=== PATIENT | male | born 1945 | race Caucasian/White ===

== ENCOUNTER → 2017-07-19 | Outpatient (CLI) | payer OTHER ==
[~2017-07-19] MED LIST: ACETAMINOPHEN-1 EAC1 PO; ADVAIR HFA 230M12 GM INH; ALBUTEROL2.5 MG/31 INH; AMBIEN 5 MG TABL5 M1 PO; ANTACID M LIQU355 ML PO; ASPIR 8181 MG PO; ATORVASTATIN CA40 MG PO; AZITHROMYCIN 2250 MG PO; B12INJ PO; CENTRUM SILVER1 EAC2 PO; COLACE100 MG PO; COREG6.25 MG PO; FLOMAX0.4 MG PO; FLONASE 0.05%50 MCG NASAL; HYDROCHLOROTHIA25 M2 PO; HYDROCODONE-AP1 EAC6 PO; HYDROXYZINE HCL25 M1 PO; LASIX 40 MG TAB40 M2 PO; LEVAQUIN 500 M500 M2 PO; LISINOPRIL5 MG PO; NEILMED SINUS R1 KIT NASAL; PEPCID20 MG PO; PHENERGAN 25 MG25 M1 PO; POTASSIUM20 PO; PREDNISONE 10 M10 M1 PO; PREDNISONE 10 M10 MG PO; PROAIR HFA8.5 GM INH; SPIRIVA INH; STIOLTO RESPIMAT4 GM INH; SYMBICORT160 MCG/4. INH; SYMBICORT80 MCG/4.1 INH; TRAZODONE HCL50 MG PO; TYLENOL EXTRA500 MG PO; ZAROXOLYN 5MG TA5 MG PO; ZOLOFT25 MG PO
== END ==
LOC: M.RAD 12:21
DX: J44.9 Chronic obstructive pulmonary disease, unspecified (principal); J98.4 Other disorders of lung; J41.1 Mucopurulent chronic bronchitis; Z86.79 Personal history of other diseases of the circulatory system

== ENCOUNTER → 2017-11-28 | Outpatient (CLI) | payer OTHER ==
--- NOTE | 2017-11-28 15:50 | 2DMMODE ---
[place] [address] 2 D/M-MODE ECHOCARDIOGRAM Name: MICHELL SAUCEDO Room: [facility]#: [id number] Admission: 11/28/17 Attend Phys: Jorge Calhoun, Discharge: Date of : 49 Date of Service: 11/28/17 1549 Report #: [id number] THIS REPORT FOR: //name// APPROVED REPORT Study performed: 11/28/2017 14:54:29 EXAM: Comprehensive 2D, Doppler, and color-flow Echocardiogram Patient Location: Out-Patient Status: routine BSA: 2.18 HR: 83 bpm BP: 127/80 mmHg Other Information Study Quality: Fair Technically limited study due to patient could not lay down, inability to position patient. Indications Aortic Valve Disease 2D Dimensions IVSd: 16.07 (7-11mm) LVOT Diam: 20.92 (18-24mm) LVDd: 55.96 mm PWd: 12.31 (7-11mm) Ascending Ao: 29.23 (22-36mm) LVDs: 38.14 (25-40mm) Aortic Root: 32.77 mm Volumes Left Atrial Volume (Systole) LA ESV Index: 25.50 mL/m2 Aortic Valve AoV Peak Johnny.: 3.45 m/s AO Peak Gr.: 47.59 mmHg LVOT Max P.04 mmHg AO Mean Gr.: 27.85 mmHg LVOT Mean P.15 mmHg LVOT Max V: 0.71 m/s AO V2 VTI: 78.30 cm LVOT Mean V: 0.50 m/s JUSTINO (VTI): 0.83 cm2 LVOT V1 VTI: 19.00 cm Mitral Valve E/A Ratio: 0.44 MV Decel. Time: 99.45 [place] [address] 2 D/M-MODE ECHOCARDIOGRAM Name: MICHELL SAUCEDO Room: [facility]#: [id number] Admission: 11/28/17 Attend Phys: Jorge Calhoun, Discharge: Date of : 49 Date of Service: 11/28/17 1549 Report #: [id number] MV E Max Johnny.: 0.44 m/s MV PHT: 28.84 ms MVA (PHT): 7.63 cm2 TDI E/Lateral E': 6.29 E/Medial E': 4.40 Medial E' Johnny.: 0.10 m/s Lateral E' Johnny.: 0.07 m/s Pulmonary Valve PV Peak Johnny.: 0.57 m/s PV Peak Gr.: 1.32 mmHg Tricuspid Valve RAP Estimate: 5.00 mmHg TR Peak Gr.: 32.86 mmHg RVSP: 37.86 mmHg PA Pressure: 37.86 mmHg Left Ventricle The left ventricle is normal size. There is normal LV segmental wall motion. Mild concentric left ventricular hypertrophy. Left ventricular systolic function is normal. LVEF is 55-60%. Transmitral Doppler flow pattern suggests impaired LV relaxation. Right Ventricle The right ventricle is normal size. The right ventricular systolic function is normal. Atria The left atrium size is normal. The right atrium size is normal. Aortic Valve Aortic valve is moderately calcified. No aortic regurgitation is present. Severe aortic stenosis. Mitral Valve There is mild mitral annular calcification. There is no mitral valve regurgitation noted. No evidence of mitral valve stenosis. Tricuspid Valve The tricuspid valve is normal in structure. Mild to moderate tricuspid regurgitation. The RVSP is 35-40 mmHg. Pulmonic Valve The pulmonary valve is normal in structure. There is no pulmon[place] [address] 2 D/M-MODE ECHOCARDIOGRAM Name: MICHELL SAUCEDO Room: [facility]#: [id number] Admission: 11/28/17 Attend Phys: Jorge Calhoun, Discharge: Date of : 49 Date of Service: 11/28/17 1549 Report #: [id number] Great Vessels The aortic root is normal in size. IVC is normal in size and collapses with >50% inspiration Pericardium There is no pericardial effusion. <Conclusion> The left ventricle is normal size. Mild concentric left ventricular hypertrophy. Left ventricular systolic function is normal. LVEF is 55-60%. Transmitral Doppler flow pattern suggests impaired LV relaxation. Aortic valve is moderately calcified. Severe aortic stenosis. Mild to moderate tricuspid regurgitation. Mild to moderate tricuspid regurgitation. The RVSP is 35-40 mmHg. <ELECTRONICALLY SIGNED> By: oJrge Calhoun MD, FACC 11/28/17 1549 1549 1549 Jorge Calhoun MD, FACC /INF
== END ==
LOC: M.CRD 14:08
DX: I07.1 Rheumatic tricuspid insufficiency (principal); I35.0 Nonrheumatic aortic (valve) stenosis; I35.8 Other nonrheumatic aortic valve disorders; I34.8 Other nonrheumatic mitral valve disorders

== ENCOUNTER 2018-01-27 15:32 | Inpatient (IN) | payer OTHER ==
[~2018-01-27] VITALS: Ht 185.4 cm; Wt 91.6 kg
[~2018-01-27 15:32] MED LIST changes: -ALBUTEROL2.5 MG/31 INH; -B12INJ PO; -FLONASE 0.05%50 MCG NASAL; -NEILMED SINUS R1 KIT NASAL; -PHENERGAN 25 MG25 M1 PO; -POTASSIUM20 PO; -PREDNISONE 10 M10 M1 PO; -PROAIR HFA8.5 GM INH; -STIOLTO RESPIMAT4 GM INH; -TRAZODONE HCL50 MG PO; -TYLENOL EXTRA500 MG PO; -ZAROXOLYN 5MG TA5 MG PO; -ZOLOFT25 MG PO
[2018-01-27 15:34] VITALS: BP 150/77
[2018-01-27] MEDS ORDERED: TRAZODONE HCL50 MG PO (15:42)
[2018-01-27] MEDS ORDERED: POTASSIUM20 PO (15:42)
[2018-01-27] MEDS ORDERED: ZOLOFT25 MG PO (15:43)
[2018-01-27] MEDS ORDERED: ADVAIR HFA 230M12 GM INH (15:43)
[2018-01-27] MEDS ORDERED: ZAROXOLYN 5MG TA5 MG PO (15:44)
[2018-01-27] MEDS ORDERED: ALBUTEROL2.5 MG/31 INH (15:45)
[2018-01-27] MEDS ORDERED: STIOLTO RESPIMAT4 GM INH (15:45)
[2018-01-27] MEDS ORDERED: FLONASE 0.05%50 MCG NASAL (15:46)
[2018-01-27] MEDS ORDERED: B12INJ PO (15:46)
[2018-01-27] MEDS ORDERED: PROAIR HFA8.5 GM INH (15:46)
[2018-01-27] MEDS ORDERED: NEILMED SINUS R1 KIT NASAL (15:46)
[2018-01-27] MEDS ORDERED: TYLENOL EXTRA500 MG PO (15:47)
[2018-01-27 16:20] LABS: ABSOLUTE EOSINOPHILS 0.1 thou/uL (0.0-0.7); ABSOLUTE LYMPHOCYTES 1.6 thou/uL (0.8-5.3); ABSOLUTE MONOCYTES 0.9 thou/uL (0.0-1.2); ABSOLUTE NEUTROPHILS 5.9 thou/uL (1.6-8.1); BASOPHILS 0.5 %; EOSINOPHILS 1.5 %; HEMATOCRIT 39.2 % (42.0-52.0); HEMOGLOBIN 13.5 gm/dL (14.0-18.0); LYMPHOCYTES 18.6 %; MCHC 34.4 g/dL (28.0-37.0); MCV 92.8 fL (80.0-100.0); MPV 6.7 fl. (7.2-11.1); NUCLEATED RBCS 0 /100WBC; PLATELET COUNT* 354 thou/uL (150-400); POLYS 69.4 %; RBC 4.23 mil/uL (4.50-6.00); RDW-CV 13.2 % (10.5-14.5); WBC 8.5 thou/uL (4.0-11.0)
[2018-01-27 16:30] LABS: ANION GAP 9 mmol/L (7-16); APTT 35.2 Seconds (25.0-31.3); BUN 15 mg/dL (7-18); CALCIUM 9.1 mg/dL (8.5-10.1); CHLORIDE 96 mmol/L (98-107); CO2 29 mmol/L (21-32); CREATININE 1.1 mg/dL (0.6-1.3); GLUCOSE 109 mg/dL (70-99); POTASSIUM 3.4 mmol/L (3.5-5.1); PROTIME 10.4 Seconds (9.20-11.50); SODIUM 134 mmol/L (136-145)
[2018-01-27 16:46] LABS: ALBUMIN 3.6 g/dL (3.4-5.0); ALKALINE PHOSPHATASE 104 U/L (46-116); LIPASE 123 U/L (73-393); SGOT 12 U/L (15-37); SGPT 16 U/L (30-65); TOTAL BILIRUBIN 0.4 mg/dL (<0.1-1.0); TOTAL PROTEIN 7.9 g/dL (6.4-8.2); TROPONIN-I LEVEL <0.06 ng/mL (<0.06)
[2018-01-27 18:07] VITALS: BP 113/66
[2018-01-27 18:20] VITALS: BP 135/75
--- NOTE | 2018-01-27 18:45 | NUR ---
PT ARRIVED TO UNIT VIA [facility] AT ED RN AT 1816. PT TRANSFERED FROM [facility] TO BED WITHOUT ASSISTANCE. A&O X4, ABLE TO COMMUNICATE NEEDS TO STAFF. VSS. O2 SAT >92% ON 2.5 L/MIN NC. BLADE SHARPENER IN PLACE, SR BBB 1ST DEG WITH PVCs. ASSESSMENT COMPLETE, DOCUMENTED. CALL LIGHT WITHIN REACH.
[2018-01-27 20:00] VITALS: BP 116/68
--- NOTE | 2018-01-27 20:00 | NUR ---
RECEIVED REPORT AND ASSUMED CARE OF PT, ASSESSMENT COMPLETED. PT SITTING UP IN BED. O2 ON AT 2.5 L/NC. NO SOB NOTED. C/O NAUSEA, WILL GIVE MED. TELEMETRY ON SHOWING SA WITH 1ST AVB, BBB. WILL CONT TO MONITOR AND ASSIST NEEDED.
[2018-01-27 22:00] VITALS: BP 103/67; BP 113/67; BP 123/76
--- NOTE | 2018-01-27 22:00 | NUR ---
ORTHO VS TAKEN. LYING 123/76, 81 SITTING 113/67, 82 STANDING 103/67, 91. PT DENIES DIZZINESS OR SYNCOPAL FEELING. ASSISTED WITH CANE TO BR AND BACK, TOLERATED WELL.
[2018-01-28] VITALS (7 sets, daily range): BP systolic 88–154; BP diastolic 50–75
[2018-01-28 05:51] LABS: ABSOLUTE BASOPHILS 0.1 thou/uL (0.0-0.2); ABSOLUTE EOSINOPHILS 0.2 thou/uL (0.0-0.7); ABSOLUTE LYMPHOCYTES 1.7 thou/uL (0.8-5.3); ABSOLUTE MONOCYTES 1.1 thou/uL (0.0-1.2); ABSOLUTE NEUTROPHILS 7.7 thou/uL (1.6-8.1); BASOPHILS 0.5 %; EOSINOPHILS 2.2 %; HEMOGLOBIN 12.2 gm/dL (14.0-18.0); MCH 31.6 pg (26.0-34.0); MCHC 33.9 g/dL (28.0-37.0); MCV 93.4 fL (80.0-100.0); MONOCYTES 10.5 %; MPV 7.3 fl. (7.2-11.1); NUCLEATED RBCS 0 /100WBC; PLATELET COUNT* 310 thou/uL (150-400); POLYS 70.8 %; RBC 3.86 mil/uL (4.50-6.00); RDW-CV 13.2 % (10.5-14.5); WBC 10.9 thou/uL (4.0-11.0)
[2018-01-28 05:57] LABS: CALCIUM 8.7 mg/dL (8.5-10.1); POTASSIUM 3.1 mmol/L (3.5-5.1)
--- NOTE | 2018-01-28 06:27 | NUR ---
SLEPT WELL TONIGHT. GAIT STEADY TO AND FROM BR. DENIES DIZZINESS. TELEMETRY CONT TO SHOW SR WITH 1ST AVB, BBB, PAC, AND PVC. NPO FOR ATIYA POSS TODAY AND CARDIOLOGY CONSULT. HS GOALS OF REST AND COMFORT ACHIEVED. HOURLY ROUNDING OBSERVED.
--- NOTE | 2018-01-28 10:57 | NUR ---
ASSISTANT TRACK COACH INFORMED THAT THE PATIENT WILL NEED TO TRANSFER TO ANOTHER FACILITY. REFERRING PHYSICIAN: DR. NEAL; TYPE OF BED: TELE; REASON/REQUEST: SERVICES NOT AVAILABLE AT OUR FACILITY, [facility]; FACILITY TRANSFERING TO: [facility]. ASSISTANT TRACK COACH SPOKE TO [facility] TRANSFER TEAM TO INFORM OF THE NEED TO TRANSFER THE PATIENT, AND FAXED PATIENT'S FACESHEET, H&P, AND CLINICAL INFO, AND HAD ALL IMAGING UPLOADED TO THE CLOUD. CM WILL REMAIN AVIALABLE TO ASSIST AND FOLLOW NEEDED.
--- NOTE | 2018-01-28 15:23 | NUR ---
Pt is A&O. Resides at home alone. Supportive dtr that lives near and is available to assist as needed. Pt wears home o2 at [facility], provided by [employer]. Pt has a cane that he uses a needed. Hx of , does not recall the name of the agency. Hx of skilled at [facility] in 2015. Dtr to provide dc transportation. Following.
--- NOTE | 2018-01-28 16:19 | NUR ---
PATIENT UP WITH ASSISTANCE; REFUSING TO USE BSC/URINAL PER DR. BUI. PATIENT WANTING TO WALK INTO BATHROOM. UP WITH ASSISTANCE AND USE OF CANE. PER CARDIOLOGY PATIENT TO TRANSFER TO [facility] ON THE [place] FOR TAVR PROCEDURE. PER [facility] PATIENT TO JUST FOLLOW UP ON SUNDAY AFTER DISCHARGE. DR. BUI NOTIFIED AND PATIENT DAUGHTER AWARE. PATIENT DAUGHTER CALLING THIS AFTERNOON AND PER [facility] F/U APPT TO BE CANCELLED AND PATIENT TO FOLLOW UP ON 02/04. THIS NURSE SPOKE WITH JAMIE FROM CARDIOLOGY AND WOULD NOTIFY DR. NEAL. SCHEDULING PHONE NUMBER GIVEN TO JAMIE ELECTORATE OFFICER. SECURITY TEAM LEAD REMAINS IN PLACE. IV SL. XRAY DONE OF LEFT ANKLE THIS AFTERNOON, NEGATIVE. PRN TYLENOL GIVEN FOR LEFT ANKLE PAIN THIS AM WITH GOOD RELIEF NOTED.
--- NOTE | 2018-01-28 20:00 | NUR ---
RECEIVED REPORT AND ASSUMED CARE OF PT, ASSESSMENT COMPLETED. LONG DISCUSSION WITH PT CONCERNING BEDREST. STATES HE WILL USE THE URINAL SITTING UP BUT WILL GO INTO BR FOR BM'S. EDUCATED PT ON SYNCOPY AND SAFETY BUT INSISTED ON BM IN BR IF NEEDED. TELEMETRY ON SHOWING SR WITH 1ST AVB AND BBB. WILL CONT TO MONITOR AND ASSIST NEEDED.
[2018-01-29] VITALS: BP 90/48
[2018-01-29 04:00] VITALS: BP 88/43
--- NOTE | 2018-01-29 06:58 | NUR ---
SLEPT WELL. PT STOOD AT BEDSIDE TO URINATE. DENIES DIZZINESS OR SYNCOPAL FEELING. EDUCATED PT ON BEDREST AND NOT GETTING UP. MONITORING BP DUE TO BEING LOW. TELEMETRY CONT TO BE UNCHANGED. HAVING OCC MOIST COUGH. HS GOALS OF REST AND SAFETY ACHIEVED. HOURLY ROUNDING OBSERVED.
[2018-01-29 08:00] VITALS: BP 90/51
--- NOTE | 2018-01-29 10:03 | NUR ---
ASSUMED CARE OF PT AT 0730. PT RESTING IN BED. PT A&0X4, DENIES ANY PAIN OR SHORTNESS OF BREATH AT THIS TIME. PT TRACING SR WITH PAC'S, FIRST DEGREE AND BBB ON THE MARKETING PRODUCTION COORDINATOR. ON 2L NC SAT 96% DENIES ANY SHORTNESS OF BREATH. PT ON BEDREST, EDUCATION GIVEN REGARDING LOW BLOOD PRESSURE AND HISTORY OF SYNCOPAL EPISODES, BLOOD PRESSURE 90/51 THIS AM- PO COREG AND LASIX HELD THIS AM- LACY CASE, CARDIOLOGY WRITER PRODUCER HERE TO SEE PT AND OKAY TO HOLD COREG AND LASIX. WILL MONITOR BLOOD PRESSURE CLOSELY. PT DAUGHTER CALLED THIS AM AND UPDATED ON CURRENT PLAN OF CARE, PT DAUGHTER STATES PT IS TO HAVE ATIYA ON 02/04 AT [facility] AND CONSULTATION FOR TAVR ON 02/06 AT [facility]. PT GOAL FOR TODAY IS TO REMAIN FREE FROM SYNOPAL EPISODES AND MONITOR BLOOD PRESSURE CLOSELY. AM ASSESSMENT CHARTED. MEDICATIONS PER MAY. PT REPOSITIONS SELF. HOURLY ROUNDING OBSERVED. BED IN LOW POSITION. BED ALARM IN PLACE. FALL PRECAUTIONS IN PLACE. CALL LIGHT WITHIN REACH. WILL CONTINUE PLAN OF CARE.
--- NOTE | 2018-01-29 11:10 | EKG ---
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 : 1945 Requested By: Gustavo Robles Order Number: [id number] MD: Giancarlo Portillo Measurements Intervals [place] Rate: 73 P: 60 TN: 231 QRS: -57 QRSD: 149 T: 38 QT: 425 QTc: 469 Interpretive Statements Sinus arrhythmia Ventricular premature complex Prolonged TN interval RBBB and LAFB Compared to ECG 10/03/2015 18:10:32 Ventricular premature complex(es) now present First degree AV block now present Sinus rhythm no longer present Electronically Signed On 01-29-2018 11:10:09 PHYSICS DEPARTMENT CHAIR by Giancarlo Portillo [email or web address] <ELECTRONICALLY SIGNED> By: Giancarlo Portillo MD, FACC 01/29/18 1110 1539 1539 Giancarlo Portillo MD, FACC /EPI
[2018-01-29 11:13] VITALS: BP 93/55
--- NOTE | 2018-01-29 11:41 | NUR ---
Spoke with Dr Goodwin, requested that CM contact [facility], Dr sidhus Pt transferred. CM contacted [facility] transfer team and provided contact info for Dr Goodwin. Following.
[2018-01-29 15:48] VITALS: BP 84/48
--- NOTE | 2018-01-29 16:12 | NUR ---
SEED PRODUCTION FIELD SUPERVISOR SPOKE TO THE PATIENT TO DISCUSS DISCHARGE PLANNING NEEDS AND SKILLED AT D/C. PATIENT INFORMS THAT HE 'IS NOT OPPOSED TO SKILLED AND IF RECOMMENDED BY THE PHYSICIAN, WOULD LIKE TO GO TO [facility]'. SEED PRODUCTION FIELD SUPERVISOR FAXED AN INITIAL REFERRAL TO [facility], HOWEVER THERE ARE NO PT/OT NOTES AVAILABLE. PT/OT NOTES WILL NEED TO BE FAXED TO [facility]. CM WILL REMAIN AVAILABLE TO ASSIST AND FOLLOW NEEDED.
--- NOTE | 2018-01-29 17:23 | NUR ---
NO ACUTE CHANGES THROUGHOUT SHIFT. REFER TO CHARTING. PT BLOOD PRESSURE CONTINUES TO BE SOFT AT 80-90'S/ 40-50'S. PT REMAINED FREE FROM SYNCOPAL EPISODES [id number] SHIFT. PT HAD A BOWEL MOVEMENT TODAY- UP WITH 1 ASSIST, CANE AND GAIT BELT TO BATHROOM. COREG AND LASIX DECREASED PER JAMIE MORENO NP. EVENING DOSE OF COREG HELD DUE TO LOW BLOOD PRESSURE.PT CONTINUES TO TRACE SR WITH OCCASIONAL FIRST DEGREE, BBB AND PAC'S ON THE BAR ATTENDANT. ON 2L NC SAT UPPER 90'S. DENIES ANY PAIN OR SHORTNESS OF BREATH THROUGHOUT SHIFT. DR BUI HERE TO SEE PT. WILL CONTINUE TO WATCH BLOOD PRESSURE AND PLAN FOR DISCHARGE TO SNF BEFORE TRANSFER TO [facility] FOR TAVR PT NOT SAFE TO BE AT HOME BY HIMSELF. PT NOT PROGRESSING TOWARDS GOALS. MEDICATIONS PER MAY. PT REPOSITIONS SELF WITH REMINDERS. HOURLY ROUNDING OBSERVED. BED IN LOW POSITION. BED ALARM IN PLACE. FALL PRECAUTIONS IN PLACE. CALL LIGHT WITHIN REACH. WILL CONTINUE PLAN OF CARE.
[2018-01-29 20:00] VITALS: BP 109/67
[2018-01-30 01:09] VITALS: BP 98/59
[2018-01-30 04:00] VITALS: BP 98/57
--- NOTE | 2018-01-30 05:03 | NUR ---
ASSUMED CARE OF PT AT 0930. PT RESTED WELL THIS SHIFT. HYPOTENTION NOTED. REMAIN UNSYMPTOMATIC THROUGHOUT SHIFT. REAMINED SR W/ BBB ON MONITOR. TYLENOL GIVEN FOR LEFT ANKLE PAIN. SAFELTY PRECAUTIONS IN PLACE. CALL LIGHT WITHIN REACH. PERFORMED HOURLY ROUNDING. NURSING WILL CONTINUE TO MONITOR.
[2018-01-30 12:00] VITALS: BP 100/60
[2018-01-30 13:18] LABS: CALCIUM 9.4 mg/dL (8.5-10.1); POTASSIUM 4.6 mmol/L (3.5-5.1)
--- NOTE | 2018-01-30 13:24 | NUR ---
PT DAUGHTER BROUGHT IN UPDATED MED LIST, WILL PROVIDE TO ONCOMING RN TO VERIFY AND UPDATE. PT VSS WITH SOME BOUTS OF HYPOTENSION THAT RESOLVE, NO SYNCOPAL EPISODES THIS SHIFT. AIDES ASKED TO OBTAIN ORTHOSTATIC VS ON PT WITH AFTERNOON VS. PT TOLERATING DIET AND DENIES PAIN AT THIS TIME. WILL HAVE ONCOMING RN DISCUSS WITH POLYMERIZATION KETTLE OPERATOR REGARDING PT LEAVING FOR SKILLED FACILITY TOMORROW 01/31/18
--- NOTE | 2018-01-30 15:01 | NUR ---
Pt will likely not qualify for SNF, OT signed off, awaiting PT and Pt does not have a ST need. Updated Dr Goodwin, plan dc to home tomorrow with HH, to monitor and educate Pt on cardiac issues. Referral to be faxed to [facility] at dc. NORMA spoke with [facility] regarding referral. Following.
--- NOTE | 2018-01-30 15:26 | NUR ---
RECIEVED REPORT FROM ZAN AND ASSUMED CARE OF PT @ 1400.PT IS A/O X4,VSS.ASSESSMENT REVEIWED AND THIS NURSE AGREES WITH PREVIOUS NURSE.PT RESTING IN BED WITH CALL LIGHT AND FALL PRECAUTIONS IN PLACE.WILL CONTINUE TO MONITOR.
[2018-01-30 15:38] VITALS: BP 106/62
[2018-01-30] MEDS ORDERED: FLONASE 0.05%50 MCG NASAL (16:47)
[2018-01-30] MEDS ORDERED: SPIRIVA INH (16:48)
[2018-01-30] MEDS ORDERED: PREDNISONE 10 M10 M1 PO (16:50)
[2018-01-30] MEDS ORDERED: PHENERGAN 25 MG25 M1 PO (16:51)
[2018-01-30 20:00] VITALS: BP 137/74
[2018-01-31] VITALS (9 sets, daily range): BP systolic 108–126; BP diastolic 55–78
--- NOTE | 2018-01-31 04:49 | NUR ---
ASSUMED CARE OF PT AFTER REPORT AT 1930. PT A&OX4. VSS. PHYSICAL ASSESSMENT COMPLETED AND CHARTED. PT ON O2 AT 2L WITH 02 SAT. PT TRACING SR/1ST DEG/BBB ON TELE. PT UP STANDBY ASSIST TO RESTROOM. PT COMPLAINED OF LEFT ANKLE PAIN- WITH PAIN SCALE OF 5/10-PAIN MEDS GIVEN PER MAR WITH PARTIAL RELIEF. HOURLY ROUNDING OBSERVED. HS REST & SAFETY GOALS ACHIEVED. CALL [facility] WITHIN REACH. BED IN LOW POSITION. BED ALARM ON.
[2018-01-31 05:04] LABS: ABSOLUTE EOSINOPHILS 0.4 thou/uL (0.0-0.7); ABSOLUTE LYMPHOCYTES 1.4 thou/uL (0.8-5.3); ABSOLUTE NEUTROPHILS 5.6 thou/uL (1.6-8.1); BASOPHILS 0.5 %; EOSINOPHILS 4.4 %; HEMATOCRIT 34.6 % (42.0-52.0); HEMOGLOBIN 11.6 gm/dL (14.0-18.0); LYMPHOCYTES 17.1 %; MCH 31.6 pg (26.0-34.0); MCHC 33.6 g/dL (28.0-37.0); MONOCYTES 11.3 %; MPV 7.2 fl. (7.2-11.1); NUCLEATED RBCS 0 /100WBC; PLATELET COUNT* 293 thou/uL (150-400); POLYS 66.7 %; RBC 3.68 mil/uL (4.50-6.00); RDW-CV 13.2 % (10.5-14.5); WBC 8.4 thou/uL (4.0-11.0)
[2018-01-31 05:21] LABS: CALCIUM 8.7 mg/dL (8.5-10.1); CREATININE 0.8 mg/dL (0.6-1.3); POTASSIUM 3.9 mmol/L (3.5-5.1)
--- NOTE | 2018-01-31 10:08 | NUR ---
VACUUM TRUCK DRIVER SPOKE TO INTAKE NURSE WITH [facility] TO INFORM OF THE REFERRAL FOR HH SERVICES, AND FAXED THE PATIENT'S FACESHEET AND H&P. [facility] TO RETURN CALL TO INFORM OF ACCEPTANCE OF THE PATIENT. D/C ORDERS TO BE FAXED TO [facility] PENDING ACCEPTANCE OF THE PATIENT. CM WILL REMAIN AVIALABLE TO ASSIST AND FOLLOW NEEDED.
--- NOTE | 2018-01-31 17:19 | NUR ---
RECEIVED REPORT FROM APOLONIA AND ROMARIO PT AT 0730. VSS TRACING SINUS RHYTHM 1ST DEGREE BBB. ASSESSMENT COMPLETED CHARTED. PT ALERT AND ORIENTED X 4. PT IS CALM AND COOPERATIVE. PAIN WELL MANAGED WITH PO PAIN MEDICATION. LUNGS CTA. PT REMAINS ON OXYGEN 2L PER NC. IV PATENT AND SALINE LOCKED. PT UP WITH SBA. PT WORKED WITH PHYSICAL THERAPY AND AMBULATED IN HALLWAY. PT INFORMED OF PLAN OF CARE. PT VERBALIZE UNDERSTANDING. HOURLY ROUNDING COMPLETED FOR PT SAFETY. CALL LIGHT WITHIN REACH. PT OKAY FOR DISCHARGE. PAPER WORK COMPLETED AND GIVEN TO PT. IV REMOVED. CARDIAC MONITORING REMOVED AND RETURNED TO NURSES STATION. ALL PERSONAL BELONGINGS PACK AND TAKEN WITH PT. PT ESCORTED OFF UNIT BY NURSING STAFF IN WHEELCHAIR AND TAKEN OUT TO PERSONAL VEHICLE.
== END 2018-01-31 18:31 | disposition home health service (06) | DRG 307 ==
LOC: M.ERS 15:32 → M.2W 17:09 → M.TBA-ER 17:09 → M.2W 18:17
PROVIDERS: Emergency Medicine Emergency Medical Services; ADMIT Internal Medicine
DX: I35.0 Nonrheumatic aortic (valve) stenosis (principal); J96.10 Chronic respiratory failure, unspecified whether with hypoxia or hypercapnia; I42.9 Cardiomyopathy, unspecified; I50.32 Chronic diastolic (congestive) heart failure; J44.9 Chronic obstructive pulmonary disease, unspecified; I11.0 Hypertensive heart disease with heart failure; E78.5 Hyperlipidemia, unspecified; Z87.891 Personal history of nicotine dependence; Z79.82 Long term (current) use of aspirin; Z79.51 Long term (current) use of inhaled steroids; Z79.899 Other long term (current) drug therapy

== ENCOUNTER → 2018-07-19 | Outpatient (CLI) | payer OTHER ==
[~2018-07-19] MED LIST changes: +ALBUTEROL2.5 MG/31 INH; +B12INJ PO; +FLONASE 0.05%50 MCG NASAL; +NEILMED SINUS R1 KIT NASAL; +PHENERGAN 25 MG25 M1 PO; +POTASSIUM20 PO; +PREDNISONE 10 M10 M1 PO; +PROAIR HFA8.5 GM INH; +STIOLTO RESPIMAT4 GM INH; +TRAZODONE HCL50 MG PO; +TYLENOL EXTRA500 MG PO; +ZAROXOLYN 5MG TA5 MG PO; +ZOLOFT25 MG PO
== END ==
LOC: M.RAD 13:38
DX: R14.0 Abdominal distension (gaseous) (principal); K59.09 Other constipation

== ENCOUNTER 2018-08-15 15:00 | Inpatient (IN) | payer OTHER ==
[2018-08-13 13:30] VITALS: BP 127/65
[~2018-08-15] VITALS: Ht 185.4 cm; Wt 96.6 kg
[2018-08-15] MEDS ORDERED: ALLOPURINOL 10100 M1 PO (15:11)
[2018-08-15] MEDS ORDERED: ZANTAC 150MG T150 MG PO (15:12)
[2018-08-15] MEDS ORDERED: POTASSIUM20 PO (15:12)
[2018-08-15] MEDS ORDERED: SPIRIVA INH (15:13)
[2018-08-15] MEDS ORDERED: ALEVE220 MG PO (15:16)
[2018-08-15 15:39] LABS: ABSOLUTE MONOCYTES 1.3 thou/uL (0.0-1.2); ABSOLUTE NEUTROPHILS 12.2 thou/uL (1.6-8.1); BASOPHILS 0.2 %; EOSINOPHILS 0.2 %; HEMATOCRIT 45.8 % (42.0-52.0); HEMOGLOBIN 15.4 gm/dL (14.0-18.0); LYMPHOCYTES 7.2 %; MCH 31.5 pg (26.0-34.0); MCHC 33.6 g/dL (28.0-37.0); MONOCYTES 8.8 %; MPV 7.5 fl. (7.2-11.1); NUCLEATED RBCS 0 /100WBC; PLATELET COUNT* 300 thou/uL (150-400); POLYS 83.6 %; RBC 4.87 mil/uL (4.50-6.00); RDW-CV 16.1 % (10.5-14.5); WBC 14.6 thou/uL (4.0-11.0)
[2018-08-15 15:49] LABS: APTT 41.9 Seconds (25.0-31.3); PROTIME 10.2 Seconds (9.20-11.50)
[2018-08-15 15:51] LABS: ANION GAP 14 mmol/L (7-16); BUN 17 mg/dL (7-18); CALCIUM 9.2 mg/dL (8.5-10.1); CHLORIDE 101 mmol/L (98-107); CO2 25 mmol/L (21-32); CREATININE 0.9 mg/dL (0.6-1.3); GLUCOSE 109 mg/dL (70-99); SODIUM 140 mmol/L (136-145)
[2018-08-15 16:07] LABS: ALBUMIN 3.5 g/dL (3.4-5.0); ALKALINE PHOSPHATASE 99 U/L (46-116); NT-PRO BRAIN NAT PEPTIDE 1264 pg/mL (<300); SGOT 13 U/L (15-37); SGPT 18 U/L (30-65); TOTAL BILIRUBIN 0.8 mg/dL (<0.1-1.0); TOTAL PROTEIN 8.3 g/dL (6.4-8.2); TROPONIN-I LEVEL <0.06 ng/mL (<0.06)
[2018-08-15 17:55] VITALS: BP 113/68
[2018-08-15 18:30] VITALS: BP 140/80
[2018-08-16 00:05] VITALS: BP 119/62
[2018-08-16 04:11] VITALS: BP 120/66
[2018-08-16 08:00] VITALS: BP 122/72
--- NOTE | 2018-08-16 10:40 | EKG ---
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: [place] : 1945 Requested By: Gustavo Robles Order Number: [id number] MD: Forrest Cason Measurements Intervals [place] Rate: 112 P: -88 MI: 155 QRS: -44 QRSD: 139 T: 69 QT: 394 QTc: 538 Interpretive Statements Sinus or ectopic atrial tachycardia RBBB and LAFB Baseline wander in lead(s) V1,V2,V3,V4 Compared to ECG 01/27/2018 15:39:43 Sinus arrhythmia no longer present Ventricular premature complex(es) no longer present Electronically Signed On 08-16-2018 10:40:45 CDT by Forrest Cason [email or web address] <ELECTRONICALLY SIGNED> By: Forrest Cason MD, [facility] 08/16/18 1040 1509 1509 Forrest Cason MD, [facility] /EPI
[2018-08-16 11:12] VITALS: BP 113/75
[2018-08-16 11:18] LABS: HEMATOCRIT 43.3 % (42.0-52.0); HEMOGLOBIN 14.1 gm/dL (14.0-18.0); MCH 30.8 pg (26.0-34.0); MCHC 32.6 g/dL (28.0-37.0); MCV 94.5 fL (80.0-100.0); MPV 7.7 fl. (7.2-11.1); RBC 4.58 mil/uL (4.50-6.00); RDW-CV 16.3 % (10.5-14.5); WBC 13.5 thou/uL (4.0-11.0)
[2018-08-16 11:40] LABS: ANION GAP 13 mmol/L (7-16); BUN 28 mg/dL (7-18); CALCIUM 8.8 mg/dL (8.5-10.1); CHLORIDE 102 mmol/L (98-107); CO2 24 mmol/L (21-32); CREATININE 0.9 mg/dL (0.6-1.3); GLUCOSE 263 mg/dL (70-99); POTASSIUM 3.6 mmol/L (3.5-5.1); SODIUM 139 mmol/L (136-145); TROPONIN-I LEVEL <0.06 ng/mL (<0.06)
[2018-08-16 16:17] VITALS: BP 116/67
[2018-08-16 20:00] VITALS: BP 118/66
[2018-08-17] VITALS: BP 122/56
[2018-08-17 03:59] VITALS: BP 132/73
[2018-08-17 05:45] LABS: HEMOGLOBIN 12.4 gm/dL (14.0-18.0); MCH 30.5 pg (26.0-34.0); MCHC 32.7 g/dL (28.0-37.0); MCV 93.3 fL (80.0-100.0); MPV 7.9 fl. (7.2-11.1); RBC 4.08 mil/uL (4.50-6.00); RDW-CV 15.8 % (10.5-14.5); WBC 16.4 thou/uL (4.0-11.0)
[2018-08-17 05:50] LABS: ANION GAP 10 mmol/L (7-16); BUN 26 mg/dL (7-18); CALCIUM 8.5 mg/dL (8.5-10.1); CHLORIDE 103 mmol/L (98-107); CO2 25 mmol/L (21-32); CREATININE 0.8 mg/dL (0.6-1.3); GLUCOSE 157 mg/dL (70-99); POTASSIUM 3.7 mmol/L (3.5-5.1); SODIUM 138 mmol/L (136-145); TROPONIN-I LEVEL <0.06 ng/mL (<0.06)
[2018-08-17 08:00] VITALS: BP 110/53
--- NOTE | 2018-08-17 09:28 | CON ---
[address] [address] CONSULTATION Name: MICHELL SAUCEDO Room: [address] IN M.R.#: [id number] Admission: 08/15/18 Attend Phys: Fabio Bonilla, Discharge: Date of : 49 Report #: [id number] THIS REPORT FOR: //name// CC: Linda Cardozo DO Fabio Bonilla DATE OF SERVICE: 08/16/2018 REQUESTING PHYSICIAN: Fabio Bonilla M.D. REASON FOR CONSULTATION: COPD exacerbation, shortness of breath. DISCUSSION: The patient is a 73-year-old man who has a history of very severe COPD. He is not steroid dependent. He does require O2 at night. Also, he has a history of coronary artery disease and severe aortic stenosis. He had been doing fairly well up until the last several days. He noted increased nasal congestion. He is sneezing a lot, and started having a lot more cough. Increasing trouble breathing. He typically uses oxygen only at night. His O2 saturation during the day typically runs in the 90s. However, with the increased shortness of breath, he was putting his O2 back on. He was seen in the ED. He was having quite a bit of distress. He was on BiPAP for a period of time, it is now been switched over to nasal cannula. Currently, he was on 6 liters at the time I saw him this morning. Subjectively, he is feeling better than what he was at the time of presenting to the ED. He was not aware of any fevers at home. Really he has not had any discolored secretions. Did have some chest pain, it has resolved today. He is feeling somewhat nauseated today, but has not had any vomiting. He is thinking it might be the antibiotics that he had been given. He has a history of very severe COPD as noted. Did quit smoking over 30 years ago. Last full pulmonary function studies or spirometry he had done was back in the fall of 2018. At that time, he is being evaluated for consideration of a TAVR. That was at [facility]. At that time, his FEV1 was only 1.14, which was only 30% of predicted. His FEV1/FVC ratio is 57%. No lung volumes were done. Mid flows were severely decreased as well, might have a component of restrictive lung disease. He has had issues with prior rib fractures as well as fractured clavicles and shoulders. Because of his anatomy, apparently he was not a candidate for TAVR. At home, for COPD, he is managed with Advair HFA 230/21 two puffs twice a day, Spiriva Respimat 2 inhalations daily, ProAir inhaler on a p.r.n. basis as needed and use nebulizer with the albuterol. He will typically do that at least several times a day and increase if needed. He sleeps with oxygen at 2.5 liters at night. He typically has not had to use it during the day[place] [address] CONSULTATION Name: MICHELL SAUCEDO Room: [address] IN [facility]#: [id number] Admission: 08/15/18 Attend Phys: Fabio Bonilla, Discharge: Date of : 49 Report #: [id number] any recent steroids. PAST MEDICAL HISTORY: Remarkable for the severe COPD as noted. Also, he has a history of sleep apnea. Apparently, he was intolerant to CPAP in the past. He does note that recently a new machine with a nasal mask was delivered to him. I am not sure who had arranged that for him. He has had multiple rib fractures in the past from a variety of causes. Also, clavicle fractures. With surgical intervention required, postop apparently he had lot of issues with infections. He has also had a left shoulder replacement, ventral hernia repair. Severe aortic stenosis is noted. He does follow with Dr. Jorge Calhoun. He was evaluated at [facility] for the possibility of a TAVR. SOCIAL HISTORY: He is a former smoker. He is retired. FAMILY HISTORY: Positive for heart disease. REVIEW OF SYSTEMS: ROS was done. Note positives above. Notes he was generally feeling quite good up until several days ago. In and out a lot. He does enjoy spending time outside, does do some gardening work. No fevers at home. He has had some amount of wheezing, mostly he was short of breath. He did have some chest pressure, it has resolved. He has had syncopal episodes in the past, but nothing recently. No palpitations. He noted the onset of some lower extremity edema. He had no nausea or vomiting at home. No dysphagia. Typically no issues with skin rashes. PHYSICAL EXAMINATION: GENERAL APPEARANCE: A man who looks stated age. His O2 running via nasal cannula, currently at 6 liters with O2 saturations 94, 95%. GENERAL: He is alert, cooperative, and able to speak in full sentences. He does have some deformities present over his shoulders area, left greater than right. Somewhat kyphotic as well. Mucous membranes look moist. NECK: No cervical adenopathy is appreciated. HEART: Tones are distant, regular with a 1/6 systolic murmur. No S3 is heard. LUNGS: Kyphotic. He does have some chest wall abnormalities noted. Few faint bibasilar crackles are heard. Excursion is equal. No subcutaneous emphysema is heard. ABDOMEN: Soft. EXTREMITIES: He has no clubbing. Lower extremities: He does have trace pretibial edema. SKIN: Warm and dry. NEUROLOGIC: He is alert and oriented x 3. LABORATORY AND X-RAY FINDINGS: On his chemistry profile, BUN 17 and creatinine of 0.9. ProBNP was just over 1200. Total protein is 8.3, albumin 3.5, and calcium 9.2. White blood cell count is 14,600, hemoglobin 15.4, hematocrit 45.8, and platelets are normal. Troponins done [place] [address] CONSULTATION Name: MARIA SAUCEDOKatina Hernandes Room: [address] IN [facility]#: [id number] Admission: 08/15/18 Attend Phys: Fabio Bonilla, Discharge: Date of : 49 Report #: [id number] Blood cultures were sent. A chest x-ray was reviewed. Some chronic scarring noted as well as old rib fractures, primarily on the left side. Overall, there is not much change compared to studies done in 01/2018. He did have a CT chest done several years ago. Marked emphysematous changes with cystic changes. He had multiple rib fractures with chest wall deformity noted. Last echocardiogram at this facility 11/2017. Had preserved LV function at that time with an EF of 55-60%. He did have diastolic dysfunction. RV was normal. He had severe aortic stenosis. IMPRESSION: 1. Chronic obstructive pulmonary disease exacerbation, is improving. 2. Respiratory failure superimposed on chronic respiratory failure. 3. Probable viral upper respiratory infection. 4. Severe aortic stenosis. This will also contribute to some of his dyspnea, especially with an acute respiratory episode. 5. Chronic obstructive pulmonary disease, baseline he has severe disease. He has not been steroid dependent. 6. History of obstructive sleep apnea. He has been using oxygen and previously he was intolerant to CPAP. 7. Probable restrictive lung disease, related to chest wall deformities. RECOMMENDATIONS: 1. Agree with steroids, may be able to start weaning dose. 2. I will continue neb treatments. Since he is on Spiriva and Advair at home, we will use Brovana, budesonide and ipratropium here to take their place. 3. Wean FiO2. 4. From his history, he was provided with a new type of CPAP with a different mask. He can certainly attempt to use that at home once he is discharged. <ELECTRONICALLY SIGNED> By: Cuca Hernandes MD 08/17/18 0928 1106 [id number] Hernandes MD /nt
[2018-08-17 12:16] VITALS: BP 114/69
[2018-08-17 16:52] VITALS: BP 139/80
[2018-08-17 20:00] VITALS: BP 109/69
[2018-08-18] VITALS: BP 103/52
[2018-08-18 04:00] VITALS: BP 117/69
[2018-08-18 05:04] LABS: HEMATOCRIT 37.4 % (42.0-52.0); HEMOGLOBIN 12.1 gm/dL (14.0-18.0); MCH 30.2 pg (26.0-34.0); MCHC 32.3 g/dL (28.0-37.0); MCV 93.7 fL (80.0-100.0); MPV 7.5 fl. (7.2-11.1); RBC 3.99 mil/uL (4.50-6.00); RDW-CV 15.9 % (10.5-14.5); WBC 13.1 thou/uL (4.0-11.0)
[2018-08-18 05:56] LABS: ALBUMIN 2.3 g/dL (3.4-5.0); ALKALINE PHOSPHATASE 61 U/L (46-116); ANION GAP 9 mmol/L (7-16); BUN 22 mg/dL (7-18); CALCIUM 7.9 mg/dL (8.5-10.1); CHLORIDE 103 mmol/L (98-107); CO2 27 mmol/L (21-32); CREATININE 0.8 mg/dL (0.6-1.3); GLUCOSE 189 mg/dL (70-99); MAGNESIUM 2.2 mg/dL (1.8-2.4); POTASSIUM 3.5 mmol/L (3.5-5.1); SGOT 13 U/L (15-37); SGPT 22 U/L (30-65); SODIUM 139 mmol/L (136-145); TOTAL BILIRUBIN 0.2 mg/dL (<0.1-1.0); TOTAL PROTEIN 5.8 g/dL (6.4-8.2); TROPONIN-I LEVEL <0.06 ng/mL (<0.06)
[2018-08-18 07:56] VITALS: BP 119/55
[2018-08-18 12:53] VITALS: BP 122/62
[2018-08-18 17:52] VITALS: BP 123/75
[2018-08-18 20:00] VITALS: BP 134/59
[2018-08-19] VITALS: BP 110/59
[2018-08-19 04:00] VITALS: BP 105/69
[2018-08-19 04:41] LABS: HEMATOCRIT 39.3 % (42.0-52.0); HEMOGLOBIN 12.8 gm/dL (14.0-18.0); MCH 30.7 pg (26.0-34.0); MCHC 32.6 g/dL (28.0-37.0); MCV 94.1 fL (80.0-100.0); MPV 7.7 fl. (7.2-11.1); RBC 4.17 mil/uL (4.50-6.00); RDW-CV 15.7 % (10.5-14.5); WBC 9.7 thou/uL (4.0-11.0)
[2018-08-19 05:21] LABS: ANION GAP 6 mmol/L (7-16); BUN 21 mg/dL (7-18); CALCIUM 8.3 mg/dL (8.5-10.1); CHLORIDE 104 mmol/L (98-107); CO2 31 mmol/L (21-32); CREATININE 0.8 mg/dL (0.6-1.3); GLUCOSE 101 mg/dL (70-99); MAGNESIUM 2.2 mg/dL (1.8-2.4); POTASSIUM 3.8 mmol/L (3.5-5.1); SODIUM 141 mmol/L (136-145); TROPONIN-I LEVEL <0.06 ng/mL (<0.06)
[2018-08-19 07:05] VITALS: BP 100/55
[2018-08-19 11:42] VITALS: BP 112/81
[2018-08-19] MEDS ORDERED: BROVANA15 MCG/2 M INH (15:27)
[2018-08-19 15:38] VITALS: BP 125/72
[2018-08-19] MEDS ORDERED: IPRAT-ALBUT 0.5-3 ML IH (15:51)
[2018-08-19] MEDS ORDERED: PROTONIX40 M2 PO (15:56)
[2018-08-19] MEDS ORDERED: POTASSIUM20 PO (15:58)
[2018-08-19] MEDS ORDERED: PREDNISONE 10 M10 MG PO (16:05)
[2018-08-19] MEDS ORDERED: AMOX TR-K CLV1 EAC3 PO (16:15)
[2018-08-19] MEDS ORDERED: AZITHROMYCIN 2250 MG PO (16:16)
--- NOTE | 2018-08-20 14:52 | CON ---
[address] [address] CONSULTATION Name: MICHELL SAUCEDO Room: [address] IN .R.#: [id number] Admission: 08/15/18 Attend Phys: Fabio Bonilla, Discharge: 08/19/18 Date of : 49 Report #: [id number] THIS REPORT FOR: //name// CC: Linda Bonilla DATE OF SERVICE: 08/16/2018 HISTORY OF PRESENT ILLNESS: The patient is a 73-year-old single white male who I was asked to see in the hospital today after he complained to be short of breath. The patient has a history of COPD. He used to smoke 3 packs of cigarettes a day. He also has history of alcohol abuse. However, he has not smoked for several years and now has only about 3 drinks of alcohol a day. He has a history of COPD and is on bronchodilators and oxygen at home. He has been followed by my partner, Dr. Calhoun. Previous nuclear stress test in 2016 using Lexiscan here at [place] showed evidence of diaphragmatic attenuation, but no ischemia and ejection fraction of 64%. His last echocardiogram in 11/2017 showed ejection fraction of 60% with evidence of aortic stenosis and a peak gradient across the aortic valve of 48 mmHg consistent with at least moderate aortic stenosis. The patient was doing well until recently had increasing shortness of breath and a cough. He came to the Emergency Room yesterday and was admitted. He does have some chest heaviness, although no radiation of the pain. Denies palpitation, syncope, edema. PAST MEDICAL HISTORY: He has had shoulder surgery, hernia repair, hypertension. MEDICATIONS ON ADMISSION: Consist of Zoloft, ProAir, allopurinol, potassium, ranitidine, Flomax, Lipitor, aspirin, carvedilol, Lasix, albuterol, Naprosyn. ALLERGIES: He has no known drug allergies. FAMILY HISTORY: His father had a heart attack. 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 He is not smoking anymore, has about 3 drinks of alcohol a day. REVIEW OF SYSTEMS: He has had no history of stroke. He has had COPD. He has had a peptic ulcer in the past, had hepatitis A. No kidney disease, no cancer. No psychiatric illness. No chronic skin condition. PHYSICAL EXAMINATION: GENERAL: Revealed an elderly male, lying in bed, appeared in no acute distress. VITAL SIGNS: He had a blood pressure of 120/70, pulse is 90, he is afebrile. HEENT: He is anicteric. Conjunctivae pink. Mucous membranes moist. NECK: Veins do not appear distended[place] [address] CONSULTATION Name: MICHELL SAUCEDO Cecilio Room: [address]#: [id number] Admission: 08/15/18 Attend Phys: Fabio Bonilla, Discharge: 08/19/18 Date of : 49 Report #: [id number] CHEST: Revealed expiratory wheezes. CARDIOVASCULAR: Regular rate and rhythm, grade 3 systolic ejection murmur at left sternal border. ABDOMEN: Soft. EXTREMITIES: Had no pedal edema. Dorsalis pedis pulse cannot be palpated. SKIN: Cool and dry. NEUROLOGIC: Nonfocal. LYMPH: No adenopathy. MUSCULOSKELETAL: No joint effusion. LABORATORY DATA: His ECG showed a sinus tachycardia, left axis deviation, right bundle branch block. His chest x-ray on admission showed interstitial fibrosis, evidence of previous rib fractures, no effusion. Sodium 140, creatinine 0.9. Liver function studies were normal. Troponin 0.06. BNP 1264. White blood cell count 13.5, hemoglobin 14.1. IMPRESSION AND RECOMMENDATIONS: 1. Chronic obstructive pulmonary disease. 2. Aortic stenosis. The patient is not an operative candidate. 3. Hypertension. I will consider discontinuing his beta maribell because of wheezing. 4. Previous tobacco abuse. 5. History of alcohol abuse. <ELECTRONICALLY SIGNED> By: Forrest Cason MD, [facility] 08/20/18 1452 1133 1037David Carol Cason MD, FACC /nt
== END 2018-08-19 18:03 | disposition home or self-care (01) | DRG 871 ==
LOC: M.ERS 15:00 → M.2W 16:22 → M.TBA-ER 16:22 → M.2W 18:06
PROVIDERS: Emergency Medicine Emergency Medical Services; ADMIT Family Medicine
PROC: 5A09357 Assistance with Respiratory Ventilation, Less than 24 Consecutive Hours, Continuous Positive Airway Pressure (ICD-10-PCS; principal; 2018-08-15)
PROC: 5A09357 Assistance with Respiratory Ventilation, Less than 24 Consecutive Hours, Continuous Positive Airway Pressure (ICD-10-PCS; 2018-08-16)
DX: A41.9 Sepsis, unspecified organism (principal); J96.21 Acute and chronic respiratory failure with hypoxia; E43 Unspecified severe protein-calorie malnutrition; I50.43 Acute on chronic combined systolic (congestive) and diastolic (congestive) heart failure; J44.1 Chronic obstructive pulmonary disease with (acute) exacerbation; I42.9 Cardiomyopathy, unspecified; E78.00 Pure hypercholesterolemia, unspecified; I25.10 Atherosclerotic heart disease of native coronary artery without angina pectoris; I35.0 Nonrheumatic aortic (valve) stenosis; G47.33 Obstructive sleep apnea (adult) (pediatric); I45.10 Unspecified right bundle-branch block; F32.9 Major depressive disorder, single episode, unspecified; I11.0 Hypertensive heart disease with heart failure; Z99.81 Dependence on supplemental oxygen; Z79.82 Long term (current) use of aspirin; Z79.899 Other long term (current) drug therapy; Z82.49 Family history of ischemic heart disease and other diseases of the circulatory system; Z87.891 Personal history of nicotine dependence; Z68.28 Body mass index [BMI] 28.0-28.9, adult

== ENCOUNTER → 2019-03-14 | Outpatient (CLI) | payer OTHER ==
[~2019-03-14] MED LIST changes: +ALEVE220 MG PO; +ALLOPURINOL 10100 M1 PO; +AMOX TR-K CLV1 EAC3 PO; +BROVANA15 MCG/2 M INH; +IPRAT-ALBUT 0.5-3 ML IH; +PROTONIX40 M2 PO; +ZANTAC 150MG T150 MG PO
== END ==
LOC: M.RAD 16:04
DX: J43.9 Emphysema, unspecified (principal); M94.0 Chondrocostal junction syndrome [Tietze]; J98.4 Other disorders of lung; M47.819 Spondylosis without myelopathy or radiculopathy, site unspecified

== ENCOUNTER 2020-08-01 12:54 | Inpatient (IN) | payer OTHER ==
[~2020-08-01] VITALS: Ht 185.4 cm; Wt 93.3 kg
[2020-08-01] MEDS ORDERED: RAYOS5 MG PO (13:09)
[2020-08-01 13:23] LABS: ABSOLUTE BASOPHILS 0.1 thou/uL (0.0-0.2); ABSOLUTE EOSINOPHILS 0.2 thou/uL (0.0-0.7); ABSOLUTE LYMPHOCYTES 1.1 thou/uL (0.8-5.3); ABSOLUTE MONOCYTES 0.7 thou/uL (0.0-1.2); ABSOLUTE NEUTROPHILS 6.8 thou/uL (1.6-8.1); BASOPHILS 0.6 %; EOSINOPHILS 1.8 %; HEMOGLOBIN 15.3 gm/dL (14.0-18.0); LYMPHOCYTES 12.6 %; MCH 32.5 pg (26.0-34.0); MCHC 33.3 g/dL (28.0-37.0); MCV 97.7 fL (80.0-100.0); MONOCYTES 7.8 %; MPV 7.4 fl. (7.2-11.1); NUCLEATED RBCS 0 /100WBC; PLATELET COUNT* 232 thou/uL (150-400); POLYS 77.2 %; RBC 4.71 mil/uL (4.50-6.00); RDW-CV 14.5 % (10.5-14.5); WBC 8.8 thou/uL (4.0-11.0)
[2020-08-01 13:35] LABS: APTT 29.4 Seconds (25.0-31.3); CREATININE 0.8 mg/dL (0.6-1.3); POTASSIUM 3.4 mmol/L (3.5-5.1); PROTIME 10.2 Seconds (9.20-11.50)
[2020-08-01 13:46] LABS: ALBUMIN 3.6 g/dL (3.4-5.0); MAGNESIUM 1.8 mg/dL (1.8-2.4); TOTAL BILIRUBIN 0.5 mg/dL (<0.1-1.0); TOTAL PROTEIN 7.7 g/dL (6.4-8.2)
[2020-08-01 14:55] VITALS: BP 143/75
[2020-08-01 15:28] VITALS: BP 139/92
[2020-08-01] MEDS ORDERED: MUCINEX100 MG PO (16:45)
[2020-08-01] MEDS ORDERED: LORATIDINE 10 M10 M1 PO (16:46)
[2020-08-01] MEDS ORDERED: MONTELUKAST SODI4 M1 PO (16:46)
[2020-08-01] MEDS ORDERED: CLONAZEPAM 0.50.5 M1 PO (16:47)
[2020-08-01] MEDS ORDERED: MIRALAX119 GM PO (16:50)
[2020-08-01] MEDS ORDERED: SPIRIVA RESPIMAT4 G1 INH (16:50)
[2020-08-01] MEDS ORDERED: SERTRALINE HCL100 MG PO (16:51)
[2020-08-01 20:00] VITALS: BP 129/91
[2020-08-01 23:30] VITALS: BP 95/67
[2020-08-02 03:45] VITALS: BP 119/61
[2020-08-02 04:12] LABS: HEMATOCRIT 42.6 % (42.0-52.0); HEMOGLOBIN 14.1 gm/dL (14.0-18.0); MCH 32.3 pg (26.0-34.0); MCV 97.8 fL (80.0-100.0); MPV 7.3 fl. (7.2-11.1); NUCLEATED RBCS 0 /100WBC; PLATELET COUNT* 217 thou/uL (150-400); RBC 4.35 mil/uL (4.50-6.00); RDW-CV 14.4 % (10.5-14.5); WBC 7.1 thou/uL (4.0-11.0)
[2020-08-02 04:25] LABS: CALCIUM 8.6 mg/dL (8.5-10.1); CREATININE 0.8 mg/dL (0.6-1.3); POTASSIUM 3.9 mmol/L (3.5-5.1)
[2020-08-02 05:44] LABS: ABSOLUTE EOSINOPHILS 0.1 thou/uL (0.0-0.7); ABSOLUTE LYMPHOCYTES 0.5 thou/uL (0.8-5.3); ABSOLUTE MONOCYTES 0.1 thou/uL (0.0-1.2); ABSOLUTE NEUTROPHILS 6.4 thou/uL (1.6-8.1); PLATELET ESTIMATE ADEQUATE
[2020-08-02 08:00] VITALS: BP 104/55
--- NOTE | 2020-08-02 10:29 | EKG ---
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 : 1945 Requested By: Sj Crespo Order Number: [id number] MD: Forrest Cason Measurements Intervals [place] Rate: 79 P: 67 TN: 236 QRS: -59 QRSD: 147 T: 38 QT: 423 QTc: 486 Interpretive Statements Sinus rhythm Ventricular premature complex Prolonged TN interval RBBB and LAFB Compared to ECG 08/15/2018 15:09:27 Ventricular premature complex(es) now present rate has slowed Electronically Signed On 08-02-2020 10:29:27 CDT by Forrest Cason [email or web address] <ELECTRONICALLY SIGNED> By: Forrest Cason MD, [facility] 08/02/20 1029 1302 1302 Forrest Cason MD, [facility] /EPI
[2020-08-02 12:53] VITALS: BP 109/59
--- NOTE | 2020-08-02 14:01 | 2DMMODE ---
[place] [address] 2 D/M-MODE ECHOCARDIOGRAM Name: MICHELL SAUCEDO Room: [address] IN [facility]#: [id number] Admission: 08/01/20 Attend Phys: Bird Carlson Discharge: Date of : 49 Date of Service: 08/02/20 1401 Report #: [id number] THIS REPORT FOR: cc: Linda Cardozo Ahmad W. DO Blick,Forrest Medina MD [facility] ~ APPROVED REPORT Study performed: 08/02/2020 10:32:33 EXAM: Comprehensive 2D, Doppler, and color-flow Echocardiogram Patient Location: In-Patient Room #: [facility] Status: routine BSA: 2.17 HR: 80 bpm BP: 104/55 mmHg Rhythm: NSR Other Information Study Quality: Good Indications Murmur 2D Dimensions IVSd: 12.21 (7-11mm) LVOT Diam: 22.09 (18-24mm) LVDd: 49.02 mm PWd: 12.02 (7-11mm) Ascending Ao: 41.16 (22-36mm) LVDs: 22.75 (25-40mm) Aortic Root: 39.57 mm Volumes Left Atrial Volume (Systole) LA ESV Index: 29.10 mL/m2 Aortic Valve AoV Peak Johnny.: 3.12 m/s AO Peak Gr.: 38.85 mmHg LVOT Max P.00 mmHg AO Mean Gr.: 22.13 mmHg LVOT Mean P.13 mmHg LVOT Max V: 0.71 m/s AO V2 VTI: 64.75 cm LVOT Mean V: 0.50 m/s JUSTINO (VTI): 1.05 cm2 LVOT V1 VTI: 17.70 [place] [address] 2 D/M-MODE ECHOCARDIOGRAM Name: MICHELL SAUCEDO Room: [address] IN [facility]#: [id number] Admission: 08/01/20 Attend Phys: Bird Carlson Discharge: Date of : 49 Date of Service: 08/02/20 1401 Report #: [id number] Mitral Valve E/A Ratio: 0.68 MV Decel. Time: 396.90 ms MV E Max Johnny.: 0.60 m/s MV PHT: 115.10 ms MVA (PHT): 1.91 cm2 TDI E/Lateral E': 5.00 Lateral E' Johnny.: 0.12 m/s Tricuspid Valve RAP Estimate: 5.00 mmHg TR Peak Gr.: 37.35 mmHg RVSP: 42.00 mmHg PA Pressure: 42.00 mmHg Left Ventricle The left ventricle is normal size. There is normal LV segmental wall motion. Mild concentric left ventricular hypertrophy. Left ventricular systolic function is normal. The left ventricular ejection fraction is within the normal range. LVEF is 60-65%. Grade I - abnormal relaxation pattern. Right Ventricle The right ventricle is normal size. The right ventricular systolic function is normal. Atria Left atrium is mildly dilated. The right atrium size is normal. Aortic Valve Aortic valve is calcified. No aortic regurgitation is present. Moderate aortic stenosis. Mitral Valve The mitral valve is normal in structure. Mild mitral annular calcification. There is no mitral valve regurgitation noted. No evidence of mitral valve stenosis. Tricuspid Valve The tricuspid valve is normal in structure. Trace tricuspid regurgitation. estimated pa pressure 45 mm Hg Pulmonic Valve The pulmonary valve is normal in structure. [place] [address] 2 D/M-MODE ECHOCARDIOGRAM Name: MICHELL SAUCEDO Room: [address]#: [id number] Admission: 08/01/20 Attend Phys: Bird Carlson Discharge: Date of : 49 Date of Service: 08/02/20 1401 Report #: [id number] valvular regurgitation. Great Vessels Aortic root is mildly dilated. IVC is normal in size and collapses >50% with inspiration. Pericardium There is no pericardial effusion. <Conclusion> Mild concentric left ventricular hypertrophy. LVEF is 60-65%. Left atrium is mildly dilated. Moderate aortic stenosis. Trace tricuspid regurgitation. estimated pa pressure 45 mm Hg <ELECTRONICALLY SIGNED> By: Forrest Cason MD, FACC 08/02/201400 00 00 Forrest Cason MD, FACC /INF
--- NOTE | 2020-08-02 14:56 | CON ---
[address] [address] CONSULTATION Name: MICHELL SAUCEDO Room: [address] IN M.R.#: [id number] Admission: 08/01/20 Attend Phys: Los Degroot Discharge: Date of : 49 Report #: [id number] THIS REPORT FOR: cc: Linda Cardozo Ahmad W. DO Blick, David R. MD [facility] ~ DOC #: [id number] cc: DO Forrest Manjarrez MD [facility] DATE OF CONSULTATION: 08/02/2020 HISTORY OF PRESENT ILLNESS: The patient is a 75-year-old single white male who I was asked to see in the hospital today after complaining of being short of breath. The patient has an extensive and complicated past medical history. He previously smoked 3 packs of cigarettes a day for many years. Fortunately, he quit in 1985. He has COPD, he is on chronic oxygen. He also has sleep apnea, uses CPAP at nighttime. Recently, he has had increasing shortness of breath. He actually saw Dr. Mensah three weeks ago who started him on prednisone. However, he continues to be short of breath and has a cough. He denies any fever, lower extremity edema. He does have occasional chest pain, although it is not exertional and does not radiate. He has a history of aortic stenosis, felt to be bicuspid. He has been followed by my partner, Dr. Calhoun. He was initially referred to [facility] in 2007 but the valve was not felt to be severe enough to require TAVR. He was again referred to [facility] but he was told that they did not have the right size for his valve. He has also not felt to be a very good surgical candidate because of the severe COPD. His last echocardiogram was in 2007 and showed a gradient of 48 mmHg consistent with a least severe aortic stenosis. There was an ejection fraction of 60%. He had a cardiac catheterization at [facility] in anticipation of TAVR that showed no significant CAD. He denies recent palpitations, syncope, lightheadedness. PAST MEDICAL HISTORY: Otherwise, he had shoulder surgery, hernia repair. He has a history of hyperlipidemia. No history of diabetes. He does have hypertension. MEDICATIONS: Include albuterol nebulized treatments, allopurinol. He takes Lipitor, carvedilol, Lasix, ranitidine, Zoloft, Flomax, Desyrel. ALLERGIES: He has no known drug allergies. FAMILY HISTORY: His father had heart attack. SOCIAL HISTORY: He is , lives by himself in [place], [place]. 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 He lives by himself. [place] [address] CONSULTATION Name: MICHELL SAUCEDO Room: [address] [id number] Admission: 08/01/20 Attend Phys: Los Degroot Discharge: Date of : 49 Report #: [id number] drinking, currently has about 3 to 4 glasses of wine a day. REVIEW OF SYSTEMS: He has had no history of stroke. He does have sleep apnea. No history of seizures. He apparently has infectious hepatitis in the past. No GI bleeding. No kidney disease. No cancer. No psychiatric illness. He does wear glasses. No chronic skin condition. PHYSICAL EXAMINATION: GENERAL: Revealed an elderly frail appearing male, lying in bed, appeared in no acute distress. VITAL SIGNS: Blood pressure of 120/60, pulse 70. He is afebrile. HEENT: He was anicteric. Conjunctivae pink. Mucosa is moist. NECK: Veins do not appear distended. No carotid bruits. CHEST: Reveal distant breath sounds without wheezes. HEART: Regular rate and rhythm, grade 2 systolic ejection murmur. ABDOMEN: Obese. EXTREMITIES: Had not pitting edema. Dorsalis pedis pulse could not be palpated. SKIN: Cool and dry. NEUROLOGIC: Nonfocal. LABORATORY DATA: His ECG showed a sinus rhythm, PVC, right bundle branch block, left anterior fascicular block. His workup in the emergency room yesterday, he had a portable chest x-ray that showed normal heart size, hyperinflated lung rudd. His lab work, sodium 140, creatinine 0.8, troponin 0.06, BNP 531. His white blood cell count is 7.1, hemoglobin 14.1. IMPRESSION AND RECOMMENDATIONS: 1. Chronic obstructive pulmonary disease, the patient is on nebulizers. 2. Previous tobacco abuse, fortunately, the patient quit smoking years ago. 3. Aortic stenosis. Recommend repeat echo. The patient is not a surgical candidate. 4. Chest pain. Atypical angina. Previous heart catheterization showed no significant coronary artery disease. 5. Hyperlipidemia. The patient is on a statin drug. 6. Hypertension. The patient is on a beta maribell. 7. Excessive alcohol intake. Forrest Cason MD [facility] [address] CONSULTATION Name: MICHELL SAUCEDO Room: [address] IN [facility]#: [id number] Admission: 08/01/20 Attend Phys: Los Degroot Discharge: Date of : 49 Report #: [id number] <ELECTRONICALLY SIGNED> By: Forrest Cason MD, FACC 08/02/20 1456 0743 0819Davilos Cason MD, FACC /nt
[2020-08-02 16:07] VITALS: BP 114/65
[2020-08-02 23:50] VITALS: BP 104/62
[2020-08-03 03:36] VITALS: BP 100/57
[2020-08-03 04:00] VITALS: BP 119/57
[2020-08-03 08:00] VITALS: BP 118/67
[2020-08-03 11:30] VITALS: BP 118/65
[2020-08-03 16:00] VITALS: BP 106/68
[2020-08-03 23:37] VITALS: BP 134/62
[2020-08-04 04:00] VITALS: BP 145/87
[2020-08-04 07:47] VITALS: BP 107/61
[2020-08-04 12:00] VITALS: BP 122/75
[2020-08-04] MEDS ORDERED: DOXYCYCLINE 10100 MG PO (12:55)
[2020-08-04 14:11] VITALS: BP 122/75
== END 2020-08-04 17:00 | disposition home or self-care (01) | DRG 189 ==
LOC: M.ERS 12:54 → M.TBA-ER 13:32 → M.2W 13:32
PROVIDERS: Family Medicine; ADMIT Internal Medicine; ATTEND Internal Medicine
DX: J96.00 Acute respiratory failure, unspecified whether with hypoxia or hypercapnia (principal); J44.1 Chronic obstructive pulmonary disease with (acute) exacerbation; I50.32 Chronic diastolic (congestive) heart failure; I42.9 Cardiomyopathy, unspecified; E87.6 Hypokalemia; I35.0 Nonrheumatic aortic (valve) stenosis; M10.9 Gout, unspecified; I11.0 Hypertensive heart disease with heart failure; E78.5 Hyperlipidemia, unspecified; G47.30 Sleep apnea, unspecified; I20.9 Angina pectoris, unspecified; Z20.822 Contact with and (suspected) exposure to COVID-19; Z87.891 Personal history of nicotine dependence; Z79.82 Long term (current) use of aspirin; Z79.899 Other long term (current) drug therapy; Z99.81 Dependence on supplemental oxygen; Z82.49 Family history of ischemic heart disease and other diseases of the circulatory system; Z72.89 Other problems related to lifestyle

== ENCOUNTER 2020-12-17 08:23 | Inpatient (IN) | payer OTHER ==
[~2020-12-17] VITALS: Ht 185.4 cm; Wt 95.3 kg
[~2020-12-17 08:23] MED LIST changes: +CLONAZEPAM 0.50.5 M1 PO; +DOXYCYCLINE 10100 MG PO; +LORATIDINE 10 M10 M1 PO; +MIRALAX119 GM PO; +MONTELUKAST SODI4 M1 PO; +MUCINEX100 MG PO; +RAYOS5 MG PO; +SERTRALINE HCL100 MG PO; +SPIRIVA RESPIMAT4 G1 INH
[2020-12-17 08:27] VITALS: BP 131/78
[2020-12-17 08:45] LABS: ABSOLUTE EOSINOPHILS 0.3 thou/uL (0.0-0.7); ABSOLUTE LYMPHOCYTES 1.4 thou/uL (0.8-5.3); ABSOLUTE NEUTROPHILS 7.5 thou/uL (1.6-8.1); BASOPHILS 0.4 %; HEMATOCRIT 41.9 % (42.0-52.0); HEMOGLOBIN 13.8 gm/dL (14.0-18.0); MCH 32.3 pg (26.0-34.0); MONOCYTES 9.9 %; MPV 7.5 fl. (7.2-11.1); NUCLEATED RBCS 0 /100WBC; PLATELET COUNT* 253 thou/uL (150-400); POLYS 72.7 %; RBC 4.28 mil/uL (4.50-6.00); RDW-CV 14.4 % (10.5-14.5); WBC 10.3 thou/uL (4.0-11.0)
[2020-12-17 08:56] LABS: CALCIUM 8.7 mg/dL (8.5-10.1); POTASSIUM 3.9 mmol/L (3.5-5.1)
[2020-12-17 09:00] LABS: ALBUMIN 3.7 g/dL (3.4-5.0); TOTAL BILIRUBIN 0.3 mg/dL (<0.1-1.0); TOTAL PROTEIN 7.1 g/dL (6.4-8.2)
--- NOTE | 2020-12-17 11:24 | EKG ---
[place] [address] ELECTROCARDIOGRAM REPORT Name: MICHELL SAUCEDO Room: [facility]#: [id number] Admission: 12/17/20 Attend Phys: Discharge: Date of : 49 Date of Service: 12/17/20821 Report #: [id number] THIS REPORT FOR: //name// [facility] ED Test Date: 2020-12-17 Test Time: 08:22:15 Pat Name: MICHELL SAUCEDO Department: Room: Gender: Media Relations Associate: : 1945 Requested By: Kaushik Samano Order Number: [id number] MD: Forrest Cason Measurements Intervals [place] Rate: 84 P: 54 TN: 248 QRS: -59 QRSD: 145 T: 40 QT: 411 QTc: 486 Interpretive Statements Sinus rhythm Ventricular premature complex Prolonged TN interval Consider left atrial enlargement RBBB and LAFB artifact noted Compared to ECG 08/01/2020 13:02:36 No significant changes Electronically Signed On 12-17-2020 11:24:02 CDT by Forrest Cason [email or web address] <ELECTRONICALLY SIGNED> By: Forrest Cason MD, FAC 12/17/20 1124 1 1 Forrest Cason MD, [facility] /EPI
[2020-12-17 12:00] VITALS: BP 134/93
[2020-12-17 12:07] VITALS: BP 110/64
[2020-12-17 16:00] VITALS: BP 124/80
--- NOTE | 2020-12-17 16:09 | 2DMMODE ---
[place] [address] 2 D/M-MODE ECHOCARDIOGRAM Name: MICHELL SAUCEDO Room: [address] IN [facility] [place] [facility]#: [id number] Admission: 12/17/20 Attend Phys: Bird Carlson Discharge: Date of : 49 Date of Service: 12/17/20 1608 Report #: [id number] THIS REPORT FOR: cc: Linda Cardozo Ahmad W. DO [place], Michael J. MD [facility] ~ APPROVED REPORT Study performed: 12/17/2020 15:18:54 EXAM: Comprehensive 2D, Doppler, and color-flow Echocardiogram Patient Location: In-Patient Room #: [facility] Status: routine BSA: 2.20 HR: 90 bpm BP: 110/64 mmHg Rhythm: NSR Other Information Study Quality: Good Indications Dyspnea 2D Dimensions IVSd: 16.52 (7-11mm) LVOT Diam: 22.95 (18-24mm) LVDd: 45.73 mm PWd: 13.88 (7-11mm) Ascending Ao: 36.48 (22-36mm) LVDs: 27.91 (25-40mm) Aortic Root: 42.58 mm Aortic Valve AoV Peak Johnny.: 2.87 m/s AO Peak Gr.: 33.00 mmHg LVOT Max P.42 mmHg AO Mean Gr.: 22.71 mmHg LVOT Mean P.92 mmHg LVOT Max V: 0.60 m/s AO V2 VTI: 61.06 cm LVOT Mean V: 0.47 m/s JUSTINO (VTI): 0.98 cm2 LVOT V1 VTI: 14.46 cm Pulmonary Valve PV Peak Johnny.: 0.83 m/s PV Peak Gr.: 2.76 [place] [address] 2 D/M-MODE ECHOCARDIOGRAM Name: MICHELL SAUCEDO Room: [address] IN [facility] [place] [facility]#: [id number] Admission: 12/17/20 Attend Phys: Bird Carlson Discharge: Date of : 49 Date of Service: 12/17/20 1608 Report #: [id number] RAP Estimate: 5.00 mmHg TR Peak Gr.: 34.99 mmHg RVSP: 40.00 mmHg PA Pressure: 40.00 mmHg Left Ventricle The left ventricle is normal size. There is normal LV segmental wall motion. Mild to moderate concentric left ventricular hypertrophy. Left ventricular systolic function is normal. LVEF is 55-60%. This study is not technically sufficient to allow evaluation of the LV diastolic function. Right Ventricle The right ventricle is normal size. The right ventricular systolic function is normal. Atria The left atrium size is normal. The right atrium size is normal. Aortic Valve Moderate aortic valve sclerosis. No aortic regurgitation is present. Moderate to severe aortic stenosis. Mitral Valve Mild mitral annular calcification. There is no mitral valve regurgitation noted. No evidence of mitral valve stenosis. Tricuspid Valve The tricuspid valve is normal in structure. Mild pulmonary hypertension. Trace tricuspid regurgitation. Pulmonic Valve The pulmonary valve is normal in structure. There is no pulmonic valvular regurgitation. Great Vessels Aortic root is dilated. IVC is normal in size and collapses >50% with inspiration. Pericardium There is no pericardial effusion. <Conclusion> The left ventricle is normal size. Mild to moderate concentric left ventricular hypertrophy. Left ventricular [place] [address] 2 D/M-MODE ECHOCARDIOGRAM Name: SHERYLMICHELL G Room: [address]#: [id number] Admission: 12/17/20 Attend Phys: Bird Carlson Discharge: Date of : 49 Date of Service: 12/17/201607 Report #: [id number] LVEF is 55-60%. There is normal LV segmental wall motion. Moderate aortic valve sclerosis. Moderate to severe aortic stenosis. Mild mitral annular calcification. Mild pulmonary hypertension. Trace tricuspid regurgitation. <ELECTRONICALLY SIGNED> By: Jorge Calhoun MD, [facility] 12/17/20 1608 1608 07 Jorge Calhoun MD, FACC /INF
[2020-12-17 20:00] VITALS: BP 119/73
[2020-12-18 00:44] VITALS: BP 107/72
[2020-12-18 06:16] VITALS: BP 113/74
[2020-12-18 08:00] VITALS: BP 113/53
[2020-12-18 11:30] VITALS: BP 137/77
[2020-12-18 16:00] VITALS: BP 107/62
[2020-12-18 20:00] VITALS: BP 105/64
[2020-12-19] VITALS (7 sets, daily range): BP systolic 102–144; BP diastolic 59–88
--- NOTE | 2020-12-19 09:50 | EKG ---
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 : 1945 Requested By: Bird Carlson Order Number: [id number] Reading MD: Forrest Cason Measurements Intervals [place] Rate: 82 P: 0 NV: 157 QRS: -62 QRSD: 145 T: 30 QT: 415 QTc: 485 Interpretive Statements Sinus rhythm RBBB and LAFB Compared to ECG 12/17/2020 08:22:15 Ventricular premature complex(es) no longer present First degree AV block no longer present Electronically Signed On 12-19-2020 9:49:52 CDT by Forrest Cason [email or web address] <ELECTRONICALLY SIGNED> By: Forrest Cason MD, [facility] 12/19/20 0949 1426 1426 Forrest Cason MD, [facility] /EPI
[2020-12-20 03:50] VITALS: BP 128/64
[2020-12-20 07:40] VITALS: BP 127/72
[2020-12-20 11:46] LABS: ALBUMIN 3.1 g/dL (3.4-5.0); CALCIUM 8.9 mg/dL (8.5-10.1); CREATININE 0.9 mg/dL (0.6-1.3); POTASSIUM 4.7 mmol/L (3.5-5.1); TOTAL BILIRUBIN 0.2 mg/dL (<0.1-1.0)
[2020-12-20 12:20] VITALS: BP 152/73
[2020-12-20 18:25] VITALS: BP 126/70
[2020-12-20 19:35] VITALS: BP 163/84
[2020-12-21 00:13] VITALS: BP 133/77
[2020-12-21 04:13] VITALS: BP 130/77
[2020-12-21 09:02] VITALS: BP 147/80
[2020-12-21 13:02] VITALS: BP 135/75
[2020-12-21 17:10] VITALS: BP 141/52
[2020-12-21 20:29] VITALS: BP 146/80
[2020-12-22] VITALS (7 sets, daily range): BP systolic 112–154; BP diastolic 64–86
[2020-12-22 10:11] LABS: ABSOLUTE MONOCYTES 0.9 thou/uL (0.0-1.2); ABSOLUTE NEUTROPHILS 11.2 thou/uL (1.6-8.1); BASOPHILS 0.1 %; HEMATOCRIT 45.2 % (42.0-52.0); HEMOGLOBIN 14.2 gm/dL (14.0-18.0); LYMPHOCYTES 7.9 %; MCH 31.6 pg (26.0-34.0); MCHC 31.4 g/dL (28.0-37.0); MCV 100.7 fL (80.0-100.0); MONOCYTES 6.5 %; MPV 7.8 fl. (7.2-11.1); NUCLEATED RBCS 0 /100WBC; PLATELET COUNT* 266 thou/uL (150-400); POLYS 85.5 %; RBC 4.49 mil/uL (4.50-6.00); RDW-CV 14.7 % (10.5-14.5); WBC 13.1 thou/uL (4.0-11.0)
[2020-12-22 12:29] LABS: ALBUMIN 3.2 g/dL (3.4-5.0); CALCIUM 8.7 mg/dL (8.5-10.1); CREATININE 0.8 mg/dL (0.6-1.3); MAGNESIUM 2.2 mg/dL (1.8-2.4); POTASSIUM 4.5 mmol/L (3.5-5.1); TOTAL BILIRUBIN 0.2 mg/dL (<0.1-1.0); TOTAL PROTEIN 6.7 g/dL (6.4-8.2)
[2020-12-23 04:00] VITALS: BP 136/74
[2020-12-23 04:31] LABS: HEMATOCRIT 42.5 % (42.0-52.0); MCH 32.3 pg (26.0-34.0); MCV 97.9 fL (80.0-100.0); MPV 7.5 fl. (7.2-11.1); RBC 4.34 mil/uL (4.50-6.00); RDW-CV 14.4 % (10.5-14.5); WBC 11.5 thou/uL (4.0-11.0)
[2020-12-23 05:07] LABS: CALCIUM 8.5 mg/dL (8.5-10.1); CREATININE 0.7 mg/dL (0.6-1.3); POTASSIUM 4.5 mmol/L (3.5-5.1)
[2020-12-23 09:00] VITALS: BP 129/71
[2020-12-23 12:30] VITALS: BP 130/64
[2020-12-23 16:36] VITALS: BP 144/89
[2020-12-23] MEDS ORDERED: LEVOFLOXACIN500 MG PO (17:47)
[2020-12-23 19:45] VITALS: BP 131/88
[2020-12-23 23:48] VITALS: BP 124/75
[2020-12-24 03:30] VITALS: BP 119/79
[2020-12-24 03:49] LABS: HEMATOCRIT 43.2 % (42.0-52.0); HEMOGLOBIN 14.1 gm/dL (14.0-18.0); MCH 31.9 pg (26.0-34.0); MCHC 32.6 g/dL (28.0-37.0); MCV 97.9 fL (80.0-100.0); MPV 7.5 fl. (7.2-11.1); RBC 4.41 mil/uL (4.50-6.00); RDW-CV 14.2 % (10.5-14.5); WBC 11.4 thou/uL (4.0-11.0)
[2020-12-24 03:58] LABS: CALCIUM 8.4 mg/dL (8.5-10.1); CREATININE 0.9 mg/dL (0.6-1.3); POTASSIUM 4.7 mmol/L (3.5-5.1)
[2020-12-24 08:00] VITALS: BP 143/82
[2020-12-24 09:53] VITALS: BP 143/82
== END 2020-12-24 12:53 | disposition home or self-care (01) | DRG 177 ==
LOC: M.ERS 08:23 → M.2W 10:02 → M.TBA-ER 10:02 → M.ERS 12:07 → M.2W 12:21
PROVIDERS: Emergency Medicine; Internal Medicine; ADMIT Internal Medicine; ATTEND Internal Medicine
PROC: 5A0935A Assistance with Respiratory Ventilation, Less than 24 Consecutive Hours, High Flow/Velocity Cannula (ICD-10-PCS; principal; 2020-12-19)
PROC: 5A0935A Assistance with Respiratory Ventilation, Less than 24 Consecutive Hours, High Flow/Velocity Cannula (ICD-10-PCS; 2020-12-20)
PROC: 5A0935A Assistance with Respiratory Ventilation, Less than 24 Consecutive Hours, High Flow/Velocity Cannula (ICD-10-PCS; 2020-12-21)
PROC: 5A0935A Assistance with Respiratory Ventilation, Less than 24 Consecutive Hours, High Flow/Velocity Cannula (ICD-10-PCS; 2020-12-22)
PROC: 5A0935A Assistance with Respiratory Ventilation, Less than 24 Consecutive Hours, High Flow/Velocity Cannula (ICD-10-PCS; 2020-12-23)
DX: J69.0 Pneumonitis due to inhalation of food and vomit (principal); J96.21 Acute and chronic respiratory failure with hypoxia; I50.33 Acute on chronic diastolic (congestive) heart failure; I26.99 Other pulmonary embolism without acute cor pulmonale; I42.9 Cardiomyopathy, unspecified; Z20.822 Contact with and (suspected) exposure to COVID-19; J44.9 Chronic obstructive pulmonary disease, unspecified; I11.0 Hypertensive heart disease with heart failure; M10.9 Gout, unspecified; E78.5 Hyperlipidemia, unspecified; Z87.891 Personal history of nicotine dependence; Z79.899 Other long term (current) drug therapy; Z79.82 Long term (current) use of aspirin

== ENCOUNTER 2020-12-30 14:43 | Inpatient (IN) | payer OTHER ==
[~2020-12-30] VITALS: Ht 185.4 cm; Wt 101.9 kg
[~2020-12-30 14:43] MED LIST changes: +LEVOFLOXACIN500 MG PO
[2020-12-30 15:05] VITALS: BP 122/81
[2020-12-30 15:26] LABS: ABSOLUTE BASOPHILS 0.1 thou/uL (0.0-0.2); ABSOLUTE EOSINOPHILS 0.2 thou/uL (0.0-0.7); ABSOLUTE LYMPHOCYTES 1.4 thou/uL (0.8-5.3); ABSOLUTE MONOCYTES 1.1 thou/uL (0.0-1.2); ABSOLUTE NEUTROPHILS 11.4 thou/uL (1.6-8.1); BASOPHILS 0.5 %; EOSINOPHILS 1.5 %; HEMATOCRIT 41.3 % (42.0-52.0); HEMOGLOBIN 13.7 gm/dL (14.0-18.0); LYMPHOCYTES 9.6 %; MCH 32.2 pg (26.0-34.0); MCHC 33.2 g/dL (28.0-37.0); MCV 96.9 fL (80.0-100.0); MONOCYTES 7.5 %; MPV 7.4 fl. (7.2-11.1); NUCLEATED RBCS 0 /100WBC; PLATELET COUNT* 221 thou/uL (150-400); POLYS 80.9 %; RBC 4.26 mil/uL (4.50-6.00); RDW-CV 14.1 % (10.5-14.5); WBC 14.1 thou/uL (4.0-11.0)
[2020-12-30 15:33] LABS: CALCIUM 9.3 mg/dL (8.5-10.1); POTASSIUM 3.8 mmol/L (3.5-5.1)
[2020-12-30 15:45] LABS: ALBUMIN 3.3 g/dL (3.4-5.0); TOTAL BILIRUBIN 0.6 mg/dL (<0.1-1.0); TOTAL PROTEIN 6.9 g/dL (6.4-8.2)
--- NOTE | 2020-12-30 16:02 | EKG ---
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
[2020-12-30 18:38] VITALS: BP 116/75
--- NOTE | 2020-12-30 19:02 | NUR ---
RECEIVED REPORT FROM PATIENCE BRADEN. PT ARRIVED ON UNIT AROUND 184. IV INTACT. HEART MONITOR ATTACHED. PT ORIENTED TO NEW ROOM. CALL LIGHT WITH IN REACH.
[2020-12-30 19:49] VITALS: BP 113/75
[2020-12-31 00:49] VITALS: BP 99/62
[2020-12-31 04:06] VITALS: BP 117/70
--- NOTE | 2020-12-31 05:38 | NUR ---
PT ADMITTED TO ROOM 103 ON PRINTED CIRCUIT BOARD PANELS TRIMMER; VSS, A+O X4, 5L O2, TACHYCARDIA. HE IS ABLE TO COMMUNICATE HIS NEEDS TO STAFF EFECTIVELY. CURRENT PAIN MEDICATION REGIMEN HAS BEEN ADEQUATE FOR CONTROLLING HIS PAIN UP TO THIS TIME.
[2020-12-31 09:24] VITALS: BP 119/68
[2020-12-31 09:51] LABS: CALCIUM 8.4 mg/dL (8.5-10.1); POTASSIUM 3.4 mmol/L (3.5-5.1)
[2020-12-31 12:10] VITALS: BP 110/69
[2020-12-31 15:56] VITALS: BP 115/73
[2020-12-31 20:19] VITALS: BP 115/59
[2021-01-01 00:45] VITALS: BP 110/68
[2021-01-01 04:27] VITALS: BP 122/77
[2021-01-01 04:29] LABS: HEMATOCRIT 41.2 % (42.0-52.0); HEMOGLOBIN 13.6 gm/dL (14.0-18.0); MCH 32.2 pg (26.0-34.0); MCV 97.4 fL (80.0-100.0); MPV 7.5 fl. (7.2-11.1); RBC 4.23 mil/uL (4.50-6.00); RDW-CV 13.9 % (10.5-14.5); WBC 12.6 thou/uL (4.0-11.0)
[2021-01-01 04:55] LABS: ALBUMIN 3.2 g/dL (3.4-5.0); CALCIUM 8.1 mg/dL (8.5-10.1); CREATININE 1.1 mg/dL (0.6-1.3); TOTAL BILIRUBIN 0.2 mg/dL (<0.1-1.0); TOTAL PROTEIN 6.7 g/dL (6.4-8.2)
[2021-01-01 05:00] LABS: POTASSIUM 4.6 mmol/L (3.5-5.1)
--- NOTE | 2021-01-01 05:32 | NUR ---
PT IS ABLE TO COMMUNICATE HIS NEEDS TO STAFF EFFECTIVELY. CURRENT PAIN MEDICATION REGIMEN HAS BEEN ADEQUATE FOR CONTROLLING HIS PAIN UP TO THIS TIME.
[2021-01-01 08:00] VITALS: BP 110/78
[2021-01-01 08:57] LABS: MAGNESIUM 1.9 mg/dL (1.8-2.4)
[2021-01-01 15:40] VITALS: BP 127/78
[2021-01-01 19:45] VITALS: BP 129/78
[2021-01-02] VITALS: BP 132/76
[2021-01-02 04:00] VITALS: BP 133/75
[2021-01-02 06:22] LABS: HEMATOCRIT 38.1 % (42.0-52.0); HEMOGLOBIN 12.3 gm/dL (14.0-18.0); MCH 31.6 pg (26.0-34.0); MCHC 32.4 g/dL (28.0-37.0); MCV 97.6 fL (80.0-100.0); MPV 7.3 fl. (7.2-11.1); RBC 3.9 mil/uL (4.50-6.00); RDW-CV 13.6 % (10.5-14.5); WBC 15.9 thou/uL (4.0-11.0)
[2021-01-02 06:38] LABS: ALBUMIN 2.8 g/dL (3.4-5.0); CALCIUM 7.6 mg/dL (8.5-10.1); CREATININE 0.9 mg/dL (0.6-1.3); MAGNESIUM 1.7 mg/dL (1.8-2.4); POTASSIUM 4.1 mmol/L (3.5-5.1); TOTAL BILIRUBIN 0.2 mg/dL (<0.1-1.0); TOTAL PROTEIN 6.1 g/dL (6.4-8.2)
[2021-01-02 09:00] VITALS: BP 110/67
[2021-01-02 16:00] VITALS: BP 122/72
--- NOTE | 2021-01-02 18:29 | NUR ---
PT. AOX4, VSS, PAIN UNDER CONTROL, CALL LIGHT AND PERSONAL BELONGINGS PLACED WITHIN REACH. STRICT I&OS. PT. IN BED, WATCHING TV, IN STABLE CONDITION, AT THIS TIME.
[2021-01-02 20:44] VITALS: BP 116/67
[2021-01-03] VITALS: BP 116/70
[2021-01-03 04:00] VITALS: BP 114/71
[2021-01-03 04:21] LABS: HEMOGLOBIN 12.5 gm/dL (14.0-18.0); MCH 32.1 pg (26.0-34.0); MCHC 32.8 g/dL (28.0-37.0); MCV 97.9 fL (80.0-100.0); MPV 7.6 fl. (7.2-11.1); RBC 3.88 mil/uL (4.50-6.00); RDW-CV 13.6 % (10.5-14.5)
[2021-01-03 05:01] LABS: ALBUMIN 2.7 g/dL (3.4-5.0); CALCIUM 7.8 mg/dL (8.5-10.1); CREATININE 0.8 mg/dL (0.6-1.3); MAGNESIUM 1.8 mg/dL (1.8-2.4); POTASSIUM 3.8 mmol/L (3.5-5.1); TOTAL BILIRUBIN 0.3 mg/dL (<0.1-1.0); TOTAL PROTEIN 5.7 g/dL (6.4-8.2)
--- NOTE | 2021-01-03 06:22 | NUR ---
PT IS ABLE TO COMMUNICATE HIS NEEDS TO STAFF EFFECTIVELY. CURRENT PAIN MEDICATION REGIMEN HAS BEEN ADEQUATE FOR CONTROLLING HIS PAIN UP TO THIS TIME. 2000 ML FLUID RESTRICTION AND STRICT I/O MAINTAINED. POSSIBLE DISCHARGE LATER TODAY.
[2021-01-03 08:44] VITALS: BP 118/70
[2021-01-03 14:13] VITALS: BP 131/68
[2021-01-03 18:56] VITALS: BP 132/80
[2021-01-03 20:00] VITALS: BP 123/82
[2021-01-04 00:04] VITALS: BP 113/68
[2021-01-04 03:49] VITALS: BP 127/69
--- NOTE | 2021-01-04 07:12 | NUR ---
ASSUMED CARE OF PT AFTER REPORT AT 1930. PT A&OX4. VSS. PHYSICAL ASSESSMENT COMPLETED AND CHARTED. PT ON O2 AT 4L NC. PT TRACING SR/SB/PAC/PVC ON TELE. PT UPADLIB. PT COMPLAINED OF BACK PAIN-MED GIVEN PER MAR. CALL LIGHT WITHIN REACH.
[2021-01-04 08:17] VITALS: BP 122/73
[2021-01-04] MEDS ORDERED: CEFDINIR300 MG PO (10:02)
[2021-01-04] MEDS ORDERED: PULMICORT0.5 MG/2 M INH (10:02)
[2021-01-04] MEDS ORDERED: PREDNISONE 10 M10 M1 PO (10:02)
[2021-01-04] MEDS ORDERED: IPRAT-ALBUT 0.5-3 ML INH (10:02)
[2021-01-04] MEDS ORDERED: DOXYCYCLINE 10100 MG PO (10:02)
[2021-01-04] MEDS ORDERED: BUMETANIDE 1 MG1 M1 PO (10:02)
--- NOTE | 2021-01-04 12:49 | NUR ---
Case and plan of care reviewed with physician each weekday during patient's length of stay. Continue plan of care per physician orders. Plan is for potential discharge 01/05 if blood sugars stablize. Spoke to pt and she has not preference for HH and states no past hx. Discussed choices and has chosen [facility], Notified Kin[facility]al[facility] of referral and plan for DC tomorrow. Will see pt today. [facility] [phone]
--- NOTE | 2021-01-04 12:53 | NUR ---
Case and plan of care reviewed with physician each weekday during patient's length of stay. Continue plan of care per physician orders. Plan is for discharge today home with HH. Spoke to pt and has not preference, shared choice of HH from Preferred list and pt chose [facility] . Notified [facility] and she will see pt today prior to discharge. Pts ride will be here at 4pm. [facility] [phone] fax [phone]
[2021-01-04 12:56] VITALS: BP 122/73
--- NOTE | 2021-01-04 13:15 | NUR ---
BEKAH ([facility]) MET WITH PATIENT AT BEDSIDE TO DISCUSS HOME HEALTH. PATIENT IS AGREEABLE TO USING [facility] UPON HOSPITAL DISCHARGE. [facility] WILL ACCEPT PATIENT.
--- NOTE | 2021-01-04 14:48 | EKG ---
[place] [address] ELECTROCARDIOGRAM REPORT Name: MICHELL SAUCEDO Room: [address] ADM IN .R.#: [id number] Admission: 12/30/20 Attend Phys: Bird Carlson Discharge: Date of : 49 Date of Service: 01/04/21 1356 Report #: [id number] THIS REPORT FOR: //name// [facility] Test Date: 2021-01-04 Test Time: 13:56:22 Pat Name: MICHELL SAUCEDO Department: Room: [address] Gender: M Director Operations: FRAN : 1945 Requested By: Maura Villareal Order Number: [id number] Heidy MD: Jorge Calohun Measurements Intervals [place] Rate: 98 P: 55 WV: 190 QRS: -63 QRSD: 154 T: 35 QT: 372 QTc: 476 Interpretive Statements Sinus tachycardia Atrial premature complexes RBBB and LAFB Baseline wander in lead(s) II,III,aVF,V2 Compared to ECG 12/30/2020 15:33:31 Atrial premature complex(es) now present Sinus rhythm no longer present Electronically Signed On 01-04-2021 14:48:29 CDT by Jorge Calhoun [email or web address] <ELECTRONICALLY SIGNED> By: Jorge Calhoun MD, FACC 01/04/21 1448 1356 1356 Jorge Calhoun MD, FACC /EPI
[2021-01-04 15:20] VITALS: BP 122/73
--- NOTE | 2021-01-04 16:35 | NUR ---
Reviewed discharge teaching with patient; verbalized understanding. IV and Telemetry discontinued. Discharged from unit per WC with daughter.
== END 2021-01-04 16:37 | disposition home health service (06) | DRG 177 ==
LOC: M.ERS 14:43 → M.ORTHSURG 17:10 → M.TBA-ER 17:10 → M.ORTHSURG 18:45
PROVIDERS: Emergency Medicine; Internal Medicine; ADMIT Internal Medicine; ATTEND Internal Medicine
PROC: 5A0935A Assistance with Respiratory Ventilation, Less than 24 Consecutive Hours, High Flow/Velocity Cannula (ICD-10-PCS; principal; 2021-01-01)
PROC: 5A0935A Assistance with Respiratory Ventilation, Less than 24 Consecutive Hours, High Flow/Velocity Cannula (ICD-10-PCS; 2021-01-02)
PROC: 5A0935A Assistance with Respiratory Ventilation, Less than 24 Consecutive Hours, High Flow/Velocity Cannula (ICD-10-PCS; 2021-01-03)
PROC: 5A0935A Assistance with Respiratory Ventilation, Less than 24 Consecutive Hours, High Flow/Velocity Cannula (ICD-10-PCS; 2021-01-04)
DX: J15.6 Pneumonia due to other Gram-negative bacteria (principal); J96.21 Acute and chronic respiratory failure with hypoxia; I50.33 Acute on chronic diastolic (congestive) heart failure; J44.1 Chronic obstructive pulmonary disease with (acute) exacerbation; J44.0 Chronic obstructive pulmonary disease with (acute) lower respiratory infection; Z20.822 Contact with and (suspected) exposure to COVID-19; G89.29 Other chronic pain; M54.9 Dorsalgia, unspecified; I11.0 Hypertensive heart disease with heart failure; E78.5 Hyperlipidemia, unspecified; I35.0 Nonrheumatic aortic (valve) stenosis; Z87.891 Personal history of nicotine dependence; Z87.81 Personal history of (healed) traumatic fracture; Z79.82 Long term (current) use of aspirin; Z79.899 Other long term (current) drug therapy; Z23 Encounter for immunization

== ENCOUNTER → 2021-01-18 | Outpatient (CLI) | payer OTHER ==
[~2021-01-18] MED LIST changes: +BUMETANIDE 1 MG1 M1 PO; +CEFDINIR300 MG PO; +IPRAT-ALBUT 0.5-3 ML INH; +PULMICORT0.5 MG/2 M INH
== END ==
LOC: M.RAD 14:35
PROVIDERS: ATTEND Registered Nurse
DX: I50.32 Chronic diastolic (congestive) heart failure (principal); M43.8X4 Other specified deforming dorsopathies, thoracic region; M47.814 Spondylosis without myelopathy or radiculopathy, thoracic region